=== PATIENT | male | born 1945 | race Caucasian/White ===

== ENCOUNTER 2024-05-01 15:51 | Emergency (ER) | payer MEDICARE, SELFPAY ==
[2024-05-01] VITALS (25 sets, daily range): BP systolic 105–138; BP diastolic 61–86; PULSE 79–103; TEMP 36.6; O2SAT 96–99; BMI 18.2
[2024-05-01] MEDS: LORAZEPAM 2 MG/ML VIAL 1 MG IM (16:04)
[2024-05-01] MEDS: DIPHENHYDRAMINE HCL 50 MG/ML VIAL 25 MG IM (16:46)
--- NOTE | 2024-05-01 17:21 | CT_ITS ---
The [address] [address] Patient Name: FRANKO SHAH MRN: [id number] date: 1945 Sex: M Assigned Patient Location: ER Current Patient Location: ER Accession/Order Number: [id number] Exam Date: 05/01/2024 17:50 Report Date: 05/01/2024 18:54 At the request of: JUAREZ FARFAN Procedure: CT head/brain wo con CT HEAD WITHOUT CONTRAST. INDICATION: Altered mental status. COMPARISON: None available for comparison TECHNIQUE: Axial CT head images from the skull base to the vertex without IV contrast were acquired. Coronal and sagittal reformats were also obtained. FINDINGS: Somewhat limited evaluation due to motion artifact. EXTRA-AXIAL SPACE: Age-appropriate ventricles. There is a mixed density subdural collection over the right parietal convexity measuring up to 1.6 cm thick. There is 6 mm right to left midline shift. . CEREBRUM: No focal abnormality. No CT evidence of acute large territorial cortical infarct or intraparenchymal hemorrhage. CEREBELLUM: No focal abnormality. No CT evidence of acute infarct, hemorrhage or mass effect. BRAINSTEM: No focal abnormality. No CT evidence of acute infarct, hemorrhage or mass effect. EXTRACRANIAL STRUCTURES. The paranasal sinuses are clear. Mastoid air cells are clear. Orbits are unremarkable. No discrete pituitary mass. Intact calvarium. CT/CT head/brain wo con IMPRESSION: Evaluation is limited due to motion artifact. 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 I discussed the above findings via phone call with Dr. Farfan at 6:54 PM Eastern time on 05/01/2024. Electronically authenticated by: LAINE NGUYEN Date: 05/01/2024 18:54
[2024-05-01 17:41] LABS: Basophils Absolute Auto 0.1 10^3/uL (0.0-0.1); Basophils Percent Auto 0.3 % (0.2-2.0); Eosinophils Percent Auto 0.1 % (0.9-7.0); Hematocrit 40.8 % (42.0-54.0); Hemoglobin 13.7 g/dL (14.0-18.0); Immature Granulocytes Abs Auto 0.05 10^3/uL (0.00-0.03); Immature Granulocytes Pct Auto 0.3 % (0.0-0.5); Lymphocytes Absolute Auto 0.4 10^3/uL (1.2-3.8); Lymphocytes Percent Auto 2.4 % (20.5-60.0); Mean Corpuscular HGB Conc 33.6 g/dL (29.9-35.2); Mean Corpuscular Hemoglobin 31.2 pg (25.9-34.0); Mean Corpuscular Volume 92.9 fL (80.0-94.0); Mean Platelet Volume 9.2 fL (9.5-13.5); Monocytes Absolute Auto 1.1 10^3/uL (0.3-0.8); Monocytes Percent Auto 6.3 % (1.7-12.0); Neutrophils Absolute Auto 15.5 10^3/uL (1.4-6.5); Neutrophils Percent Auto 90.6 % (43.0-75.0); Platelet Count 289 10^3/uL (150-450); Red Blood Count 4.39 10^6/uL (4.70-6.10); Red Cell Distribution Width 12.4 % (11.0-15.0); White Blood Count 17.1 10^3/uL (4.0-11.0)
--- NOTE | 2024-05-01 17:48 | ED_ITS ---
HPI HPI - General Adult General Chief complaint: Recheck/Abnormal Lab/Rx Stated complaint: TREMORS Time Seen by Provider: 05/01/24 15:59 Source: EMR Mode of arrival: ambulance Limitations: physical limitation History of Present Illness HPI narrative: Patient is a 79 years old male with history of Parkinson disease, has baseline the patient is opening his mouth all the time according to the but over the last few days he has been having this being aggressive and throwing his upper and lower extremity in the ER all the time at extension, and also kicking his lower extremity The patient had no such presentation before he recently was diagnosed with UTI and he was started on ceftriaxone Related Data Home Medications ?Medication ?Instructions ?Recorded ?Confirmed acetaminophen 325 mg capsule 325 mg PO Q4H PRN pain 05/01/24 05/01/24 amantadine HCl 100 mg capsule 100 mg PO BID 05/01/24 05/01/24 carbidopa 25 mg-levodopa 100 mg 1 tab PO QID 05/01/24 05/01/24 tablet carbidopa ER 50 mg-levodopa 200 mg 1 tab PO BID 05/01/24 05/01/24 tablet,extended release midodrine 5 mg tablet 5 mg PO TID 05/01/24 05/01/24 multivitamin 1 tab PO DAILY 05/01/24 05/01/24 multivitamin-ferrous 1 tab PO DAILY 05/01/24 05/01/24 fumarate-folic acid 18 mg-400 mcg tablet (Daily Multivitamin with Iron) pramipexole 1.5 mg tablet 1.5 mg PO TID 05/01/24 05/01/24 tamsulosin 0.4 mg capsule 0.4 mg PO DAILY 05/01/24 05/01/24 Allergies Allergy/AdvReac Type Severity Reaction Status Date / Time nalbuphine AdvReac Mild itching Verified 05/01/24 16:00 Opioid HPI Opioid Management Most Recent Opioid Data: No Data to Display Review of Systems ROS Status of ROS 10 or more systems reviewed and unremark able except as noted in history and below PFSH PFSH Social History Little interest or pleasure in doing things: not at all Feeling down, depressed, or hopeless: not at all Exam Narrative Exam Narrative: Nurses notes and vital signs reviewed and patient is not hypoxic. General: The patient is opening his mouth at the baseline and he have a dry oral mucosa which is mostly secondary to continuous opening of his mouth Skin: Warm, dry, no pallor noted. No rash. Head: Normocephalic, atraumatic. Neck: Supple, non-tender. Eye: Pupils are equal, round and EOMI. No scleral icterus. Cardiovascular: Regular Rate and Rhythm without murmur, gallop or rub. Respiratory: No accessory muscle use or respiratory distress. Lungs are clear to auscultation, no wheezing, rales or rhonchi Chest Wall: no tenderness Back: No midline thoracic or lumbar vertebral tenderness. No CVA tenderness Musculoskeletal: normal ROM, no calf or popliteal tenderness, no lower extremity edema/swelling GI: Abdomen is soft, non-distended. Normal bowel sounds. No masses appreciated. No tenderness to palpation. No rebound, guarding, or rigidity noted. Neurological: A&O x 1 at the patient mentioned his name but his speech is very hard to understand due to the dry mouth and the continuous opening of the mouth. But his at baseline mentioned that he speak like that Constitutional Vital Signs, click to edit/add: Last Vital Signs Temp 98 F 05/01/24 15:51 Pulse 99 H 05/01/24 18:27 Resp 20 05/01/24 18:27 BP 105/86 05/01/24 18:27 Pulse Ox 98 05/01/24 18:27 O2 Del Method Room Air 05/01/24 15:51 Course Vital Signs Vital signs: Vital Signs Temperature 98 F 05/01/24 15:51 Pulse Rate 99 H 05/01/24 15:51 Respiratory Rate 22 H 05/01/24 15:51 Blood Pressure 138/72 05/01/24 15:51 Pulse Oximetry 97 05/01/24 15:51 Oxygen Delivery Method Room Air 05/01/24 15:51 Temperature 98 F 05/01/24 15:51 Pulse Rate 99 H 05/01/24 18:27 Respiratory Rate 20 05/01/24 18:27 Blood Pressure 105/86 05/01/24 18:27 Pulse Oximetry 98 05/01/24 18:27 Oxygen Delivery Method Room Air 05/01/24 15:51 Medical Decision Making MDM Narrative Medical decision making narrative: The patient have a continued extension of the upper extremity as well as the leg and sometimes kicking and sometimes reaching out and he is sometimes trying to catch something in the air. The patient have a continuous open angle of the mouth initially he was given Ativan 1 to his IM and also Benadryl 1 dose 25 mg IM Patient CBC shows some leukocytosis which could be secondary to the urine infection Lactic acid is not elevated Chemistry was within normal pt neurologist Dr. Frantz Garza office was called and I spoke with Dr. Gamble , after discussion with the patient presentation could be secondary to delirium from the urine infection, in addition to concern that the patient getting a possible serotonin syndrome or a reaction from the fact that he is not taking his Parkinson medication , which is a possibility with his currennt medication The patient had a CAT scan with multiple artifacts is showing a subdural hematoma causing 6 mm shift from right to left and it is acute on top of chronic The patient does not take any anticoagulants The patient case was discussed with neurosurgery and he accepted the patient for medical the patient also had his case discussed with the ER doctor and she accepted the patient as well Right now the patient is stable awaiting to be transferred Lab Data Labs: Lab Results 05/01/24 Range/Units 17:36 WBC 17.1 H (4.0-11.0) 10^3/uL RBC 4.39 L (4.70-6.10) 10^6/uL Hgb 13.7 L (14.0-18.0) g/dL Hct 40.8 L (42.0-54.0) % MCV 92.9 (80.0-94.0) fL MCH 31.2 (25.9-34.0) pg MCHC 33.6 (29.9-35.2) g/dL RDW 12.4 (11.0-15.0) % Plt Count 289 (150-450) 10^3/uL MPV 9.2 L (9.5-13.5) fL Neut % (Auto) 90.6 H (43.0-75.0) % Lymph % (Auto) 2.4 L (20.5-60.0) % Coffee % (Auto) 6.3 (1.7-12.0) % Eos % (Auto) 0.1 L (0.9-7.0) % Baso % (Auto) 0.3 (0.2-2.0) % Neut # (Auto) 15.5 H (1.4-6.5) 10^3/uL Lymph # (Auto) 0.4 L (1.2-3.8) 10^3/uL Coffee # (Auto) 1.1 H (0.3-0.8) 10^3/uL Eos # (Auto) 0.0 (0.0-0.7) 10^3/uL Baso # (Auto) 0.1 (0.0-0.1) 10^3/uL Abs Immat Gran (auto) 0.05 H (0.00-0.03) 10^3/uL Imm/Tot Granulo (auto) 0.3 (0.0-0.5) % Sodium 146 H (136-145) mmol/L Potassium 4.0 (3.5-5.1) mmol/L Chloride 106 (98-107) mmol/L Carbon Dioxide 29.3 (21.0-32.0) mmol/L Anion Gap 14.7 BUN 29.0 H (7.0-18.0) mg/dL Creatinine 1.10 (0.70-1.30) mg/dL Est GFR ( Amer) >60 (>=60 mL/min/1.73m^2) Est GFR (Non-Af Amer) >60 (>=60 mL/min/1.73m^2) BUN/Creatinine Ratio 26.4 Glucose 81 (74-106) mg/dL Lactate 1.3 (0.4-2.0) mmol/L Calcium 8.9 (8.5-10.1) mg/dL Total Bilirubin 0.8 (0.2-1.0) mg/dL AST 33 (15-37) U/L ALT <6 L (16-63) U/L Alkaline Phosphatase 106 (46-116) U/L Total Protein 6.6 (6.4-8.2) g/dL Albumin 3.1 L (3.4-5.0) g/dL Globulin 3.5 g/dL Albumin/Globulin Ratio 0.9 Discharge Plan Discharge Chief Complaint: Recheck/Abnormal Lab/Rx Clinical Impression: Subdural hematoma, AMS (altered mental status) Patient Disposition: [facility] Time of Disposition Decision: 19:07
[2024-05-01 17:55] LABS: Alanine Aminotransferase <6 U/L (16-63); Albumin Globulin Ratio 0.9; Albumin Level 3.1 g/dL (3.4-5.0); Alkaline Phosphatase 106 U/L (46-116); Anion Gap 14.7; Aspartate Amino Transferase 33 U/L (15-37); BUN Creatinine Ratio 26.4; Bilirubin Total 0.8 mg/dL (0.2-1.0); Calcium 8.9 mg/dL (8.5-10.1); Carbon Dioxide 29.3 mmol/L (21.0-32.0); Chloride 106 mmol/L (98-107); Estimated GFR (African America >60 (>=60 mL/min/1.73m^2); Estimated GFR (Non-African Ame >60 (>=60 mL/min/1.73m^2); Globulin 3.5 g/dL; Glucose 81 mg/dL (74-106); Sodium 146 mmol/L (136-145); Total Protein 6.6 g/dL (6.4-8.2)
[2024-05-01 18:03] LABS: Lactate/Lactic Acid 1.3 mmol/L (0.4-2.0)
[2024-05-01] MEDS: 0.9 % SODIUM CHLORIDE 1,000 ML 500 ML IV (18:20)
--- NOTE | 2024-05-01 19:07 | ECG_ITS ---
The [facility] Test Date: 2024-05-01 Pat Name: FRANKO SHAH Department: Room: - Gender: Male [employer]: : 1945 Requested By: [id number] Order Number: [id number] Reading MD: SHANNAN OCAMPO Measurements Intervals [place] Rate: 90 P: 72 CO: 146 QRS: 64 QRSD: 102 T: 70 QT: 396 QTc: 444 Interpretive Statements 1100 Sinus rhythm 1470 with occasional supraventricular premature complexes 1574 with frequent ventricular premature complexes 2440 Incomplete right bundle branch block 9140 abnormal rhythm ECG No previous ECG available for comparison Electronically Signed On 05-02-2024 5:15:36 EST by SHANNAN OCAMPO
[2024-05-01 19:21] LABS: Bilirubin Urine NEGATIVE (NEGATIVE); Blood Urine LARGE (NEGATIVE); Glucose Urine UA NEGATIVE (NEGATIVE); Ketones Urine 15 mg/dL (NEGATIVE); Leukocyte Esterase Urine MODERATE (NEGATIVE); Nitrite Urine NEGATIVE (NEGATIVE); Protein Urine 100 mg/dL (NEG/TRACE); Specific Gravity Urine >=1.030 (1.005-1.025); Urobilinogen Urine 0.2 EU/dL (0.2-1.0); pH Urine 5.5 (5.0-9.0)
[2024-05-01 19:25] LABS: Clarity Urine CLOUDY (CLEAR); Color Urine YELLOW (YELLOW)
[2024-05-01 19:26] LABS: Urine Microscopic Indicated YES
[2024-05-01 19:29] LABS: WBC Urine >100 #/HPF (NONE SEEN)
[2024-05-01 19:30] LABS: Bacteria Urine SMALL #/HPF (NONE SEEN); Cast Seen? NONE SEEN #/LPF (NONE SEEN); Crystals Seen? None Seen #/HPF (None Seen); Mucus Urine NONE SEEN (NONE SEEN); Squamous Epithelial Cell Urine NONE SEEN #/LPF (NONE/RARE)
[2024-05-01 19:31] LABS: Urine Culture Indicated YES
== END 2024-05-01 22:40 | disposition short-term general hospital (02) ==
PROVIDERS: Emergency Provider Emergency Medicine; Family Provider Family Medicine; PCP Family Medicine
DX: I62.00 Nontraumatic subdural hemorrhage, unspecified (principal); G20.A1 Parkinson's disease without dyskinesia, without mention of fluctuations; R40.2420 Glasgow coma scale score 9-12, unspecified time; Z87.440 Personal history of urinary (tract) infections
CPT/HCPCS: 36415; 70450; 80053; 81001; 83605; 85025; 87086; 87150; 87186; 93005; 96360; 96361; 96372; 99285; J1200; J2060